=== PATIENT | female | born 1935 | race Caucasian/White ===

== ENCOUNTER 2016-06-21 09:46 | Observation (INO) | payer MEDICARE, OTHER ==
[~2016-06-21 09:46] MED LIST: ASPI1TAB69 PO; BIOT50005 PO; BUPIVACAINE/EPINEPHRINE 0.25% PF 30 ML VIAL ONE; GENTAMICIN SULFATE 80 MG/2 ML VIAL ONE; GLIM2TAB PO; HYDR25TA5 PO; ISOS30TA3 PO; LOSA100T PO; METO50TA PO; MULT-135 PO; OMEG100037 PO; RANO500 PO; SIMV20TA PO; VITA500T PO; ceFAZolin INJ 1,000 MG VIAL ONE
[2016-06-21] MEDS ORDERED: CLINDAMYCIN PHOS 600 MG/4 ML VIAL ONE (10:25)
[2016-06-21] MEDS ORDERED: SODIUM CHLORIDE 0.9% INJ 50 ML ONE (10:25)
[2016-06-21] MEDS ORDERED: INSULIN HUMAN REGULAR 1,000 UNITS/10 ML VIAL SQ PRN (10:45)
[2016-06-21] MEDS ORDERED: CHLORHEXIDINE GLUCONATE 4% SOLN 120 ML BTL TOP SCH (10:45)
[2016-06-21] MEDS ORDERED: METOPROLOL TARTRATE 25 MG TAB PO PRN (10:45)
[2016-06-21] MEDS: SODIUM CHLORID 0.9% 500 ML IV SCH ×2 (10:45→20:32)
[2016-06-21] MEDS ORDERED: CLINDAMYCIN INJ 600 MG in SODIUM CHLORIDE 0.9% INJ 100 ML IV SCH (10:45)
[2016-06-21] MEDS ORDERED: LACTATED RINGER'S 1000 ML IV SCH (10:45)
[2016-06-21] MEDS ORDERED: MIDAZOLAM HCL 2 MG/2 ML VIAL ONE (11:56)
[2016-06-21] MEDS ORDERED: FAMOTIDINE 20 MG/2 ML VIAL ONE (11:57)
[2016-06-21] MEDS ORDERED: KETOROLAC TROMETHAMINE 60 MG/2 ML (IM) VIAL IM ONE (12:00)
[2016-06-21] MEDS ORDERED: PHENYLEPH/NS 1000 MCG/10 ML SYR IV ONE (12:00)
[2016-06-21] MEDS ORDERED: NEOSTIGMINE METHYLSULFATE 10 MG/10 ML VIAL IV PUSH ONE (12:00)
[2016-06-21] MEDS ORDERED: ePHEDrine/NS 50 MG/5 ML SYR IV ONE (12:00)
[2016-06-21] MEDS ORDERED: PROPOFOL 200 MG/20 ML AMP IV ONE (12:00)
[2016-06-21] MEDS ORDERED: ONDANSETRON HCL 4 MG/2 ML VIAL IV PUSH ONE (12:00)
[2016-06-21] MEDS ORDERED: Post-op Orders (for Pharmacy) MISC XX ONE (14:00)
[2016-06-21] MEDS ORDERED: ALUMINUM/MAGNESIUM/SIMETH 30 ML CUP PO PRN (14:00)
[2016-06-21] MEDS ORDERED: BISACODYL 10 MG SUPP PR PRN (14:00)
[2016-06-21] MEDS ORDERED: MORPHINE SULFATE 4 MG/ML INJ IV PUSH PRN (14:00)
[2016-06-21] MEDS ORDERED: SODIUM CHLORIDE 0.9% FLUSH 5 ML FLUSH IVF PRN (14:00)
[2016-06-21] MEDS ORDERED: ONDANSETRON HCL 4 MG/2 ML VIAL IV PRN (14:00)
[2016-06-21] MEDS: SODIUM CHLORIDE 0.9% FLUSH 5 ML FLUSH IVF SCH ×2 (14:00→22:05)
[2016-06-21] MEDS ORDERED: SOD PHOSPHATE/SOD BIPHOSPHATE (ADULT) ENEMA 133ML PR PRN (14:00)
[2016-06-21] MEDS ORDERED: ACETAMINOPHEN/HYDROcodone 325 MG/5 MG TAB PO PRN ×2 (14:00)
[2016-06-21] MEDS ORDERED: fentaNYL CITRATE 250 MCG/5 ML AMP ONE (14:14)
--- NOTE | 2016-06-21 14:17 | RADRPT ---
EXAM DATE/TIME: 06/21/2016 13:16 [place] COMPARISON: No previous studies available for comparison. INDICATIONS : L3-4 laminectomy. MEDICAL HISTORY : None. SURGICAL HISTORY : None. ENCOUNTER: Initial ACUITY: 1 day PAIN SCORE: Non-responsive. LOCATION: Lumbar spine. FINDINGS: A single lateral view of the lumbar spine was performed. Surgical instrument projected over posterior element at L4. CONCLUSION: 1. Surgical instruments overlie posterior elements of L4. Harry Azevedo MD on June 21, 2016 at 14:13 Board Certified Radiologist. This report was verified electronically.
[2016-06-21] MEDS ORDERED: DO NOT ADM ANY ANTICOAGULANT DRUGS XX PRN (14:30)
[2016-06-21] MEDS ORDERED: DIATRIZOATE MEGLUM/DIATRIZOATE SOD 9 ML CUP PO ONE (14:30)
[2016-06-21 17:00] VITALS: BP 173/64; PULSE 47; RESP 16; TEMP 95.9; O2SAT 100
[2016-06-21] MEDS: CLINDAMYCIN INJ 600 MG in SODIUM CHLORIDE 0.9% INJ 100 ML IV SCH ×2 (17:31→22:07)
--- NOTE | 2016-06-21 19:06 | MP ---
cc: MD SCOTT,OSEI RICKS M.D., DOMENIC POLINER, BARRY, M.D. DATE OF SURGERY: 06/21/2016. PREOPERATIVE DIAGNOSIS: 1. L4-5 right-sided herniated nucleus pulposus. 2. Right-sided lumbar radiculitis right lower extremity weakness 3. Lumbar spine degenerative osteoarthritis. 4. Atherosclerotic cardiovascular disease. POSTOPERATIVE DIAGNOSIS: 1. L4-5 right-sided herniated nucleus pulposus. 2. Right-sided lumbar radiculitis right lower extremity weakness 3. Lumbar spine degenerative osteoarthritis. 4. Atherosclerotic cardiovascular disease. OPERATIVE PROCEDURE PERFORMED: L3-4 right-sided hemilaminectomy, decompression of nerve root, foraminotomy; L3-4 discectomy. SURGEON: Osei Comer MD. ADULT MANAGER: Rani Fuentes PA-C. SPECIMEN: None. ESTIMATED BLOOD LOSS: 25 cc. COMPLICATIONS: None. ANESTHESIA: General. DRAINS: None. CONDITION: Stable. PLAN OF ACTIVITY: Per orders. NOTE: My assistant project manager, Rani Fuentes PA-C, was present for the entire surgical case. She was medically necessary because of the complexity of the case and to facilitate the performance of the procedure. The DIRECTOR OF STUDENT FINANCIAL AID was at the back table and did not have the skill set for this case to manipulate the instruments; e.g., the multiple different types of soft tissue retractors, nerve root retractors with pituitary rongeurs. The patient was brought into the operating room and had satisfactory general anesthesia by Dr. Javier Clancy from the department of anesthesia. The patient was carefully transferred onto the [facility] spinal frame. All pressure points were well-padded. The lumbosacral spine was prepped, draped in the usual sterile manner. Fluoroscopy was used to localize the L3-4 interspace. 20 mL of 0.25% Marcaine with epinephrine was used to inflate the operative site to provide postoperative hemostasis and also analgesia. A small incision was made over L3-4. Dissection was carried down to the right side at L3-4. A hemilaminectomy was performed, foraminotomy and partial facetectomy. The nerve root was gently retracted under fluoroscopic guidance for reassurance of the L3-4 interspace. The patient was found to have a herniated disk which was extruded just inferior to the end plate and approximately down to the level of the pedicle on the right side. It was removed in multiple pieces. The wound was irrigated with copious amounts of sterile saline. The wound itself was dry. The wound was closed in routine manner. Fascia was closed with #2 TiCron suture. Subcutaneous tissue closed with #2-0 Vicryl. Skin was approximated with running subcuticular 3-0 Vicryl. Dermabond on the skin. Sterile dressings were applied. The patient tolerated the procedure in stable and satisfactory condition. MD KODY Garcia/FLAKO /1:48 PM /6:52 PM
[2016-06-21 20:00] VITALS: BP 156/71; PULSE 53; RESP 18; TEMP 97.2; O2SAT 97
[2016-06-21] MEDS ORDERED: ZOLPIDEM TARTRATE 5 MG TAB PO PRN (21:00)
[2016-06-21] MEDS: METOPROLOL TARTRATE 50 MG TAB PO SCH (22:05)
[2016-06-21] MEDS: RANOLAZINE 500 MG EXTENDED RELEASE TAB PO SCH (22:05)
[2016-06-22] VITALS: BP 144/66; PULSE 54; RESP 18; TEMP 98.5; O2SAT 96
[2016-06-22 01:27] VITALS: O2SAT 99
[2016-06-22 04:00] VITALS: BP 147/67; PULSE 61; RESP 18; TEMP 98.3; O2SAT 95
[2016-06-22] MEDS: CLINDAMYCIN INJ 600 MG in SODIUM CHLORIDE 0.9% INJ 100 ML IV SCH (05:00)
--- NOTE | 2016-06-22 07:14 | PD.ORT.PN ---
Subjective Subjective Remarks pt doing very well, no complaints of back pain, leg pain, no SOB, no chest pain Objective Vitals Vital Signs Date Time Temp Pulse Resp B/P Pulse Ox O2 Delivery O2 Flow Rate FiO2 06/22/16 04:00 98.3 61 18 147/67 95 06/22/16 01:27 99 21 06/22/16 00:00 98.5 54 18 144/66 96 06/21/16 20:00 97.2 53 18 156/71 97 06/21/16 17:00 95.9 47 16 173/64 100 06/21/16 16:30 44 13 129/65 97 Nasal Cannula 2 06/21/16 16:00 97.2 43 14 132/59 98 Nasal Cannula 2 06/21/16 15:30 42 12 141/66 98 Nasal Cannula 2 06/21/16 15:00 40 12 147/63 98 Nasal Cannula 2 06/21/16 14:30 44 12 139/66 98 Nasal Cannula 2 06/21/16 14:15 54 14 133/83 97 Nasal Cannula 2 06/21/16 14:01 97.0 65 15 124/59 98 Nasal Cannula 2 I/O 06/21/16 06/21/16 06/21/16 06/22/16 06/22/16 06/22/16 07:00 15:00 23:00 07:00 15:00 23:00 Intake Total 775 ml 490 ml 480 ml Output Total 175 ml Balance 600 ml 490 ml 480 ml Intake Oral 490 ml 480 ml IV Total 25 ml Other 750 ml Output Urine Total 150 ml Estimated Blood Loss 25 ml # Voids 1 1 # Bowel Movements 0 0 Objective Remarks seen by Dr. Osei Comer lumbar spine dressing intact motor is +5/5 to LE Assessment & Plan Assessment and Plan POD # 1 s/p L3-4 lami/diskectomy orthopedically stable discharge home this morning has outpatient therapy appt at 11 am at our office [place] rx in chart Rani Fuentes Jun 22, 2016 07:13
[2016-06-22] MEDS ORDERED: NORC5TAB PO (07:31)
[2016-06-22 08:00] VITALS: BP 163/83; PULSE 66; RESP 18; TEMP 98.9; O2SAT 94
[2016-06-22] MEDS ORDERED: GLIMEPIRIDE 2 MG TAB PO SCH (09:00)
[2016-06-22] MEDS ORDERED: PRAVASTATIN SOD 40 MG TAB PO SCH (09:00)
[2016-06-22] MEDS ORDERED: MULTIVITAMIN TAB PO SCH (09:00)
[2016-06-22] MEDS ORDERED: ISOSORBIDE MONONITRATE 30 MG TAB PO SCH (09:00)
[2016-06-22] MEDS ORDERED: ASPIRIN EC 81 MG TABEC PO SCH (09:00)
[2016-06-22] MEDS ORDERED: HYDROCHLOROTHIAZIDE 25 MG TAB PO SCH (09:00)
[2016-06-22] MEDS ORDERED: LOSARTAN 50 MG TAB PO SCH (09:00)
[2016-06-22 09:07] VITALS: O2SAT 98
[2016-06-22] MEDS: METOPROLOL TARTRATE 50 MG TAB PO SCH (09:08)
[2016-06-22] MEDS: RANOLAZINE 500 MG EXTENDED RELEASE TAB PO SCH (09:08)
[2016-06-22] MEDS ORDERED: DOCUSATE SODIUM 100 MG CAP PO SCH (21:00)
--- NOTE | 2016-07-05 08:55 | MP ---
cc: FUENTES AGUILAR M.D. DATE OF SURGERY 06/21/2016 ADDENDUM PREOPERATIVE DIAGNOSIS L3-4 right-sided herniated nucleus pulposus. POSTOPERATIVE DIAGNOSES L3-4 right-sided herniated nucleus pulposus. MD KODY Garcia/MARK /8:00 AM /8:52 AM
== END 2016-06-22 10:21 | disposition home or self-care (01) ==
LOC: HSDC 09:46 → HSDI 13:57 → N06B 16:47
PROVIDERS: ADMIT Orthopaedic Surgery Orthopaedic Surgery of the Spine; ATTEND Orthopaedic Surgery Orthopaedic Surgery of the Spine
DX: M51.16 Intervertebral disc disorders with radiculopathy, lumbar region (principal); M47.9 Spondylosis, unspecified; R53.1 Weakness; M16.0 Bilateral primary osteoarthritis of hip; I10 Essential (primary) hypertension; I25.10 Atherosclerotic heart disease of native coronary artery without angina pectoris; I25.2 Old myocardial infarction; E11.9 Type 2 diabetes mellitus without complications; E78.00 Pure hypercholesterolemia, unspecified; R42 Dizziness and giddiness; Z95.5 Presence of coronary angioplasty implant and graft; Z95.1 Presence of aortocoronary bypass graft
CPT/HCPCS: 00630; 63030; 72020; 76000; 86850; 86900; 86901; 94150; 97161; G0378; G8987; G8988; J1580; J1885; J2250; J2370; J2405; J2710; J3010; J0690